=== PATIENT | female | born 1985 | race Two or more races ===

== ENCOUNTER → 2017-11-09 | Outpatient (CLI) | payer BC | LOC: CFH 13:31 | PROVIDERS: ATTEND Physician Assistant | DX: M54.5 Low back pain (principal); R20.2 Paresthesia of skin; G43.909 Migraine, unspecified, not intractable, without status migrainosus; O24.419 Gestational diabetes mellitus in pregnancy, unspecified control; R79.9 Abnormal finding of blood chemistry, unspecified; F06.31 Mood disorder due to known physiological condition with depressive features; E55.9 Vitamin D deficiency, unspecified; R53.83 Other fatigue; E87.2 Acidosis; Z72.0 Tobacco use | CPT/HCPCS: 72110 ==